=== PATIENT | male | born 1990 | race African-American/Black ===

== ENCOUNTER 2018-08-09 18:41 | Inpatient (IN) ==
[2018-08-09] MEDS ORDERED: PIPERACILLIN/TAZOBACTAM 3,375 MG in SODIUM CHLORIDE 0.9% 100 ML IV STA (19:16)
[2018-08-09 19:45] LABS: Basophils # 0.1 10*3/uL (0.0-0.2); Basophils % 1.1 % (0.0-0.8); Eosinophils # 0.2 10*3/uL (0.0-0.87); Eosinophils % 2.8 % (0.00-10.9); Hematocrit 50.6 VOL% (42.0-52.0); Hemoglobin 16.3 GM/DL (14.0-18.0); Immature Granulocytes % 0.3 %; Immature Granulocytes Absolute 0.02 #; Lymphocytes # 2.2 10*3/uL (1.4-4.0); Mean Corpuscular HGB Conc 32.2 GM/DL (32-36); Mean Corpuscular Hemoglobin 31 PG (27-34); Mean Corpuscular Volume 96.9 FL (87-102); Monocytes # 0.6 10*3/uL (0.11-0.8); Monocytes % 10.4 % (1.7-12.7); Neutrophils # 3.1 10*3/uL (1.4-7.4); Neutrophils % 49.4 % (38.7-73.9); Platelet Count 236 T/CUMM (130-400); Red Blood Count 5.22 MC/CUMM (3.8-5.5); Red Cell Distribution Width 11.3 % (9.3-17.3); White Blood Count 6.2 T/CUMM (4-12)
[2018-08-09 20:01] LABS: Blood Urea Nitrogen 10 MG/DL (7-18); Calcium 9.2 MG/DL (8.5-10.1); Glucose 101 MG/DL (74-106); Potassium 3.9 MMOL/L (3.5-5.1); Sodium 143 MMOL/L (136-145)
[2018-08-09] MEDS: LACTATED RINGERS 1,000 ML IV SCH (20:05)
[2018-08-09] MEDS ORDERED: ONDANSETRON 4 MG/2 ML VIAL IV PRN (21:04)
[2018-08-09] MEDS: SODIUM CHLORIDE 0.9% 1,000 ML IV SCH (22:28)
[2018-08-10] MEDS: LACTATED RINGERS 1,000 ML IV SCH (01:58)
[2018-08-10] MEDS: PIPERACILLIN/TAZOBACTAM 3,375 MG in SODIUM CHLORIDE 0.9% 100 ML IV SCH ×3 (03:46→21:01)
[2018-08-10] MEDS: SODIUM CHLORIDE 0.9% 1,000 ML IV SCH ×2 (09:00→17:40)
[2018-08-10] MEDS: PANTOPRAZOLE 40 MG TABLET PO SCH (09:00)
[2018-08-10] MEDS: FLUCONAZOLE 100 MG TABLET PO SCH (09:30)
[2018-08-10] MEDS ORDERED: PROPOFOL 200 MG/20 ML VIAL IV ONE (13:06)
[2018-08-10] MEDS ORDERED: SEVOFLURANE 1 UNIT/15 MINUTE INH ONE (13:07)
[2018-08-10] MEDS ORDERED: ePHEDrine 50 MG/ML AMP ONE (13:08)
[2018-08-10] MEDS ORDERED: MIDAZOLAM 2 MG/2 ML VIAL ONE (13:08)
[2018-08-10] MEDS ORDERED: PHENYLEPHRINE 1 MG/10 ML SYRINGE IV ONE (13:08)
[2018-08-10] MEDS ORDERED: ONDANSETRON 4 MG/2 ML VIAL ONE (13:08)
[2018-08-10] MEDS ORDERED: fentaNYL 100 MCG/2 ML VIAL ONE (13:08)
[2018-08-10] MEDS ORDERED: ENOXAPARIN 40 MG/0.4 ML SYRINGE SUBCUT SCH (21:00)
[2018-08-11] MEDS: PIPERACILLIN/TAZOBACTAM 3,375 MG in SODIUM CHLORIDE 0.9% 100 ML IV SCH ×2 (03:59→12:05)
[2018-08-11 04:56] LABS: Basophils % 0.6 % (0.0-0.8); Eosinophils # 0.3 10*3/uL (0.0-0.87); Eosinophils % 4.3 % (0.00-10.9); Hematocrit 45.5 VOL% (42.0-52.0); Immature Granulocytes % 0.3 %; Immature Granulocytes Absolute 0.02 #; Lymphocytes # 2.4 10*3/uL (1.4-4.0); Lymphocytes % 33.3 % (21.2-54.2); Mean Corpuscular HGB Conc 30.8 GM/DL (32-36); Mean Corpuscular Hemoglobin 31 PG (27-34); Mean Corpuscular Volume 99.8 FL (87-102); Mean Platelet Volume 11.3 FL (9.6-12.0); Monocytes # 0.7 10*3/uL (0.11-0.8); Monocytes % 9.3 % (1.7-12.7); Neutrophils # 3.7 10*3/uL (1.4-7.4); Neutrophils % 52.2 % (38.7-73.9); Platelet Count 205 T/CUMM (130-400); Red Blood Count 4.56 MC/CUMM (3.8-5.5); Red Cell Distribution Width 11.2 % (9.3-17.3); White Blood Count 7.2 T/CUMM (4-12)
[2018-08-11] MEDS: SODIUM CHLORIDE 0.9% 1,000 ML IV SCH ×3 (08:08→10:44)
[2018-08-11] MEDS: PANTOPRAZOLE 40 MG TABLET PO SCH (08:23)
[2018-08-11] MEDS: FLUCONAZOLE 100 MG TABLET PO SCH (08:23)
[2018-08-11] MEDS ORDERED: CHLORHEXIDINE 4% SOLN 118 ML BOTTLE TOP SCH (10:30)
[2018-08-11 11:23] VITALS: BP 114/72
== END 2018-08-11 15:47 | disposition home or self-care (01) | DRG 571 ==
LOC: N.ED 18:41 → N.EDINP 21:04 → SUATTDRO 21:04 → N.EDINP 22:08 → N.3E 22:14
PROVIDERS: ADMIT Hospitalist; ATTEND Internal Medicine

== ENCOUNTER 2018-12-13 13:05 | Inpatient (IN) ==
[2018-12-13 13:55] LABS: Basophils % 0.6 % (0.0-0.8); Eosinophils # 0.1 10*3/uL (0.0-0.87); Eosinophils % 1.8 % (0.00-10.9); Hematocrit 58.3 VOL% (42.0-52.0); Hemoglobin 18.6 GM/DL (14.0-18.0); Immature Granulocytes % 0.3 %; Immature Granulocytes Absolute 0.02 #; Lymphocytes # 1.5 10*3/uL (1.4-4.0); Lymphocytes % 20.8 % (21.2-54.2); Mean Corpuscular HGB Conc 31.9 GM/DL (32-36); Mean Corpuscular Volume 96.5 FL (87-102); Mean Platelet Volume 10.9 FL (9.6-12.0); Monocytes % 9.2 % (1.7-12.7); Neutrophils % 67.3 % (38.7-73.9); Platelet Count 237 T/CUMM (130-400); Red Blood Count 6.04 MC/CUMM (3.8-5.5); Red Cell Distribution Width 11.5 % (9.3-17.3); White Blood Count 7.1 T/CUMM (4-12)
[2018-12-13 14:11] LABS: Alanine Aminotransferase 18 U/L (16-61); Albumin 4.7 G/DL (3.4-5.0); Alkaline Phosphatase 102 U/L (45-117); Aspartate Amino Transferase 23 U/L (0-37); Blood Urea Nitrogen 9 MG/DL (7-18); Calcium 10.3 MG/DL (8.5-10.1); Glucose 82 MG/DL (74-106); Osmolality,Calculated 274.5 MOS/KG (273-304); Total Protein 9.8 G/DL (6.4-8.3)
[2018-12-13] MEDS ORDERED: ONDANSETRON 4 MG/2 ML VIAL IV ONE (14:32)
[2018-12-13 15:53] LABS: Apearance,Urine CLEAR (Clear); Bilirubin,Urine Negative (Negative); Blood, Urine Negative (Negative); Glucose,Urine (UA) Negative (Negative); Ketones,Urine 80 mg/dL (Negative); Mucus,Urine Occasional /LPF (Occasional); Nitrite,Urine Negative (Negative); Protein,Urine Negative; RBC,Urine 4 /HPF (0-4); Urine Color Yellow (Yellow); Urine Specific Gravity 1.035 (1.001-1.035); Urine Urobilinogen < 2.0 EU/DL (0.2-1.0); WBC,Urine 61 /HPF (0-6)
[2018-12-13 16:00] LABS: Barbiturates Screen,Urine Negative (Negative); Benzodiazepines Screen,Urine Negative (Negative); Cannabinoid Screen,Urine Positive (Negative); Opiate Screen,Urine Negative (Negative); Phencyclidine Screen,Urine Negative (Negative)
[2018-12-13] MEDS ORDERED: SODIUM CHLORIDE 0.9% 2,000 ML IV STA (16:12)
[2018-12-13] MEDS ORDERED: MORPHINE 10 MG/1 ML VIAL IV STA (16:12)
[2018-12-13] MEDS ORDERED: PIPERACILLIN/TAZOBACTAM 3,375 MG in SODIUM CHLORIDE 0.9% 100 ML IV STA (16:12)
[2018-12-13 17:04] LABS: Alanine Aminotransferase 16 U/L (16-61); Albumin 4.2 G/DL (3.4-5.0); Alkaline Phosphatase 90 U/L (45-117); Aspartate Amino Transferase 18 U/L (0-37); Blood Urea Nitrogen 9 MG/DL (7-18); Glucose 71 MG/DL (74-106); Osmolality,Calculated 277.3 MOS/KG (273-304); Total Protein 8.8 G/DL (6.4-8.3)
[2018-12-13] MEDS ORDERED: ACETAMINOPHEN 325 MG TABLET PO PRN (19:57)
[2018-12-13] MEDS ORDERED: ONDANSETRON 4 MG/2 ML VIAL IV PRN (19:57)
[2018-12-13] MEDS ORDERED: MORPHINE 4 MG/1 ML VIAL IV PRN (19:57)
[2018-12-13] MEDS ORDERED: PROPOFOL 200 MG/20 ML VIAL IV ONE (21:33)
[2018-12-13] MEDS ORDERED: ALBUMIN 5% 12.5 GM/250 ML VIAL IV ONE (21:33)
[2018-12-13] MEDS ORDERED: EPINEPHrine 1 MG/ML VIAL ONE (21:33)
[2018-12-13] MEDS ORDERED: DEXAMETHASONE 4 MG/1 ML VIAL ONE (21:33)
[2018-12-13] MEDS ORDERED: fentaNYL 100 MCG/2 ML VIAL ONE (21:33)
[2018-12-13] MEDS ORDERED: KETOROLAC 30 MG/1 ML VIAL ONE (21:33)
[2018-12-13] MEDS ORDERED: DESFLURANE 1 UNIT/15 MINUTE INH ONE (21:33)
[2018-12-13] MEDS ORDERED: ONDANSETRON 4 MG/2 ML VIAL ONE (21:33)
[2018-12-13] MEDS ORDERED: SODIUM CHLORIDE 0.9% 100 ML IV ONE (21:34)
[2018-12-13] MEDS ORDERED: GLYCOPYRROLATE 0.4 MG/2 ML VIAL ONE (21:34)
[2018-12-13] MEDS ORDERED: SUCCINYLCHOLINE 200 MG/10 ML VIAL ONE (21:34)
[2018-12-13] MEDS ORDERED: LACTATED RINGERS 1,000 ML IV ONE (21:34)
[2018-12-13] MEDS ORDERED: PHENYLEPHRINE 1 MG/10 ML SYRINGE IV ONE (21:34)
[2018-12-13] MEDS ORDERED: ROCURONIUM 100 MG/10 ML VIAL IV ONE (21:34)
[2018-12-13] MEDS: LACTATED RINGERS 1,000 ML IV SCH (22:00)
[2018-12-14 01:02] LABS: Basophils % 0.2 % (0.0-0.8); Eosinophils % 0.1 % (0.00-10.9); Hematocrit 45.3 VOL% (42.0-52.0); Hemoglobin 14.2 GM/DL (14.0-18.0); Immature Granulocytes % 0.3 %; Immature Granulocytes Absolute 0.04 #; Lymphocytes % 8.1 % (21.2-54.2); Mean Corpuscular HGB Conc 31.3 GM/DL (32-36); Mean Corpuscular Volume 97.6 FL (87-102); Mean Platelet Volume 11.1 FL (9.6-12.0); Neutrophils % 85.3 % (38.7-73.9); Platelet Count 208 T/CUMM (130-400); Red Blood Count 4.64 MC/CUMM (3.8-5.5); Red Cell Distribution Width 11.4 % (9.3-17.3); White Blood Count 12.1 T/CUMM (4-12)
[2018-12-14 01:18] LABS: Calcium 8.6 MG/DL (8.5-10.1); Osmolality,Calculated 279.3 MOS/KG (273-304)
[2018-12-14] MEDS: LACTATED RINGERS 1,000 ML IV SCH ×3 (05:03→21:21)
[2018-12-14] MEDS: PANTOPRAZOLE 40 MG TABLET PO SCH (09:10)
[2018-12-14] MEDS: cefOXitin 2,000 MG in SYRINGE 1 EACH IV SCH ×2 (16:34→21:18)
[2018-12-15] MEDS: LACTATED RINGERS 1,000 ML IV SCH ×2 (04:01→16:21)
[2018-12-15] MEDS: cefOXitin 2,000 MG in SYRINGE 1 EACH IV SCH ×4 (04:02→21:09)
[2018-12-15 04:43] LABS: Basophils % 0.4 % (0.0-0.8); Eosinophils # 0.1 10*3/uL (0.0-0.87); Eosinophils % 1.4 % (0.00-10.9); Hematocrit 45.2 VOL% (42.0-52.0); Hemoglobin 14.1 GM/DL (14.0-18.0); Immature Granulocytes % 0.4 %; Immature Granulocytes Absolute 0.03 #; Lymphocytes # 1.5 10*3/uL (1.4-4.0); Lymphocytes % 19.4 % (21.2-54.2); Mean Corpuscular HGB Conc 31.2 GM/DL (32-36); Mean Corpuscular Volume 99.1 FL (87-102); Mean Platelet Volume 12.3 FL (9.6-12.0); Monocytes % 12.7 % (1.7-12.7); Neutrophils % 65.7 % (38.7-73.9); Red Blood Count 4.56 MC/CUMM (3.8-5.5); Red Cell Distribution Width 11.5 % (9.3-17.3)
[2018-12-15 04:47] LABS: Platelet Count 112 T/CUMM (130-400); White Blood Count 7.8 T/CUMM (4-12)
[2018-12-15 04:56] LABS: Alanine Aminotransferase 15 U/L (16-61); Alkaline Phosphatase 64 U/L (45-117); Aspartate Amino Transferase 18 U/L (0-37); Calcium 8.5 MG/DL (8.5-10.1)
[2018-12-15 04:57] LABS: Albumin 3.1 G/DL (3.4-5.0); Blood Urea Nitrogen 8 MG/DL (7-18); Glucose 84 MG/DL (74-106); Osmolality,Calculated 277.3 MOS/KG (273-304); Total Protein 6.7 G/DL (6.4-8.3)
[2018-12-15] MEDS: PANTOPRAZOLE 40 MG TABLET PO SCH (09:25)
[2018-12-16] MEDS: LACTATED RINGERS 1,000 ML IV SCH ×4 (02:18→12:00)
[2018-12-16] MEDS: cefOXitin 2,000 MG in SYRINGE 1 EACH IV SCH ×2 (04:36→10:12)
[2018-12-16 06:04] LABS: Basophils % 0.7 % (0.0-0.8); Eosinophils # 0.2 10*3/uL (0.0-0.87); Eosinophils % 3.6 % (0.00-10.9); Hematocrit 44.1 VOL% (42.0-52.0); Hemoglobin 14.1 GM/DL (14.0-18.0); Immature Granulocytes % 0.3 %; Immature Granulocytes Absolute 0.02 #; Lymphocytes # 1.6 10*3/uL (1.4-4.0); Lymphocytes % 25.4 % (21.2-54.2); Mean Corpuscular Volume 97.4 FL (87-102); Monocytes % 11.8 % (1.7-12.7); Neutrophils % 58.2 % (38.7-73.9); Platelet Count 177 T/CUMM (130-400); Red Blood Count 4.53 MC/CUMM (3.8-5.5); Red Cell Distribution Width 11.3 % (9.3-17.3); White Blood Count 6.1 T/CUMM (4-12)
[2018-12-16] MEDS: PANTOPRAZOLE 40 MG TABLET PO SCH (08:52)
[2018-12-16] MEDS ORDERED: cefOXitin 1,000 MG in SYRINGE 1 EACH IV ONE (10:30)
[2018-12-16 11:21] VITALS: BP 126/76
== END 2018-12-16 13:30 | disposition home or self-care (01) | DRG 351 ==
LOC: N.ED 13:05 → N.EDINP 17:12 → N.3E 18:08 → N.ICU 20:03 → N.3E 21:06
PROVIDERS: ADMIT Surgery; ATTEND Surgery

== ENCOUNTER 2022-01-02 15:27 | Observation (INO) ==
[2022-01-02 15:55] LABS: Basophils # 0.1 10*3/uL (0.0-0.2); Basophils % 0.8 % (0.0-0.8); Eosinophils # 0.4 10*3/uL (0.0-0.87); Eosinophils % 5.1 % (0.00-10.9); Hematocrit 48.7 VOL% (42.0-52.0); Hemoglobin 15.6 GM/DL (14.0-18.0); Immature Granulocytes % 0.3 %; Immature Granulocytes Absolute 0.02 #; Lymphocytes # 1.4 10*3/uL (1.4-4.0); Lymphocytes % 19.8 % (21.2-54.2); Mean Corpuscular Volume 95.7 FL (87-102); Monocytes # 0.7 10*3/uL (0.11-0.8); Monocytes % 8.9 % (1.7-12.7); Neutrophils % 65.1 % (38.7-73.9); Platelet Count 188 T/CUMM (130-400); Red Blood Count 5.09 MC/CUMM (3.8-5.5); Red Cell Distribution Width 11.9 % (9.3-17.3); White Blood Count 7.3 T/CUMM (4-12)
[2022-01-02 16:19] LABS: Alanine Aminotransferase 23 U/L (16-61); Albumin 3.8 G/DL (3.4-5.0); Alkaline Phosphatase 76 U/L (45-117); Aspartate Amino Transferase 26 U/L (0-37); Blood Urea Nitrogen 12 MG/DL (7-18); Calcium 9.9 MG/DL (8.5-10.1); Carbon Dioxide 27 MMOL/L (21-32); Chloride 102 MMOL/L (98-107); Glucose 123 MG/DL (74-106); Potassium 3.3 MMOL/L (3.5-5.1); Sodium 136 MMOL/L (136-145); Total Protein 8.1 G/DL (6.4-8.2)
[2022-01-02] MEDS ORDERED: HYDROmorphone 1 MG/1 ML SYRINGE IV PRN (16:49)
[2022-01-02] MEDS ORDERED: ONDANSETRON 4 MG/2 ML VIAL IV PRN (16:49)
[2022-01-02] MEDS: DEXTROSE 5% NACL 0.45% 1,000 ML IV SCH (17:15)
[2022-01-02 17:28] LABS: Bilirubin,Urine Negative (Negative); Blood, Urine Negative (Negative); Glucose,Urine (UA) Negative (Negative); Ketones,Urine 15 mg/dL (Negative); Nitrite,Urine Negative (Negative); Protein,Urine Trace mg/dL (Negative); Urine Appearance Clear (Clear); Urine Color Yellow (Yellow); Urine Specific Gravity >= 1.030 (1.001-1.035); Urine Urobilinogen 0.2 eU/dL (<2.0)
[2022-01-02 17:30] LABS: Mucus,Urine Occasional /LPF (Occasional); RBC,Urine <1 /HPF (0-4); Sperm,Urine Occasional /HPF (Negative)
[2022-01-02 17:58] LABS: Barbiturates Screen,Urine Negative (Negative); Benzodiazepines Screen,Urine Negative (Negative); Cannabinoid Screen,Urine Positive (Negative); Opiate Screen,Urine Negative (Negative); Phencyclidine Screen,Urine Negative (Negative)
[2022-01-03] MEDS: DEXTROSE 5% NACL 0.45% 1,000 ML IV SCH (03:43)
[2022-01-03 11:57] VITALS: BP 104/66
== END 2022-01-03 14:20 | disposition home or self-care (01) ==
LOC: N.EDINP 15:27 → N.ED 15:27 → N.3E 17:17
PROVIDERS: ADMIT Student in an Organized Health Care Education/Training Program; ATTEND Student in an Organized Health Care Education/Training Program